=== PATIENT | male | born 1975 | race Caucasian/White ===

== ENCOUNTER 2018-05-29 15:12 | Emergency (ER) | payer OTHER ==
--- NOTE | 2018-05-29 15:43 | ER Document Report ---
ED Medical Screen (RME) - General Chief Complaint: Groin Pain Stated Complaint: GROIN PAIN Time Seen by Provider: 05/29/18 15:29 TRAVEL OUTSIDE OF THE [place] IN LAST 30 DAYS: No - HPI Notes: 05/29/18 15:42 Patient is a 42-year-old male that presents to the emergency department for chief complaint of dysuria and abdominal pain. Patient reports difficulty and pain with urination for the last 3 weeks. He also is having a left lower and left upper quadrant abdominal pain. He denies any nausea or vomiting. He does state he always feels cold. He has a history of Andie fundoplication.. ROS: GENERAL: Denies fever CV: Denies chest pain PHYSICAL EXAMINATION: GENERAL: Well-appearing, well-nourished and in no acute distress. HEAD: Atraumatic, normocephalic. EYES: Pupils equal round extraocular movements intact, conjunctiva are normal. ENT: Nares patent NECK: Normal range of motion LUNGS: No respiratory distress Musculoskeletal: Normal range of motion NEUROLOGICAL: Normal speech, normal gait. PSYCH: Normal mood, normal affect. MDM: Patient seen and examined for rapid initial assessment. Vital signs reviewed. A comprehensive ED assessment and evaluation of the patient, analysis of test results and completion of the medical decision making process will be conducted by additional ED providers. - Related Data Allergies/Adverse Reactions: Cephalosporins Allergy (Verified 05/29/18 15:14) Penicillins Allergy (Verified 05/29/18 15:14) Sulfa (Sulfonamide Antibiotics) Allergy (Verified 05/29/18 15:14) Past Medical History - Social History Frequency of alcohol use: Rare Drug Abuse: None Renal/ Medical History: Denies: Hx Peritoneal Dialysis Musculoskeltal Medical History: Reports Hx Arthritis - rheumatoid and arthritis Past Surgical History: Reports: Hx Orthopedic Surgery - spinal surgery x2, left minuscus Physical Exam - Vital signs Vitals: Temp Pulse Resp BP Pulse Ox 98.0 F 92 14 106/64 100 05/29/18 15:17 05/29/18 15:17 05/29/18 15:17 05/29/18 15:17 05/29/18 15:17 Course - Vital Signs Vital signs: Temp Pulse Resp BP Pulse Ox 98.0 F 92 14 106/64 100 05/29/18 15:17 05/29/18 15:17 05/29/18 15:17 05/29/18 15:17 05/29/18 15:17
[2018-05-29 16:33] LABS: ABSOLUTE BASOPHILS # (AUTO) 0.1 10^3/uL (0.0-0.2); ABSOLUTE EOSINOPHILS # (AUTO) 0.1 10^3/uL (0.0-0.6); ABSOLUTE LYMPHOCYTES (AUTO) 1.8 10^3/uL (0.5-4.7); ABSOLUTE MONOCYTES (AUTO) 0.4 10^3/uL (0.1-1.4); ABSOLUTE NEUT (AUTO) 7.3 10^3/uL (1.7-8.2); BASOPHILS % (AUTO) 0.8 % (0-2); EOSINOPHILS % (AUTO) 0.6 % (0-6); HEMATOCRIT 41.4 % (37.9-51.0); HEMOGLOBIN 14.2 g/dL (13.5-17.0); LYMPHOCYTES % (AUTO) 18.8 % (13-45); MEAN CORPUSCULAR HEMOGLOBIN 26.7 pg (27.0-33.4); MEAN CORPUSCULAR HGB CONC 34.3 g/dL (32.0-36.0); MEAN CORPUSCULAR VOLUME 78 fl (80-97); MONOCYTES % (AUTO) 4.2 % (3-13); PLATELET COUNT 266 10^3/uL (150-450); RED BLOOD COUNT 5.31 10^6/uL (4.35-5.55); RED CELL DISTRIBUTION WIDTH 14.3 % (11.5-14.0); SEGMENTED NEUTROPHILS % (AUTO) 75.6 % (42-78); TOTAL CELLS COUNTED % (AUTO) 100 %; WHITE BLOOD COUNT 9.7 10^3/uL (4.0-10.5)
[2018-05-29 16:36] LABS: APPEARANCE,URINE CLEAR; BILIRUBIN,URINE NEGATIVE (NEGATIVE); COLOR,URINE STRAW; GLUCOSE, URINE NEGATIVE (NEGATIVE); KETONES,URINE NEGATIVE (NEGATIVE); LEUKOCYTE ESTERASE,URINE NEGATIVE (NEGATIVE); NITRITE,URINE NEGATIVE (NEGATIVE); PROTEIN,URINE NEGATIVE (NEGATIVE); URINE SPECIFIC GRAVITY 1.004; UROBILINOGEN,URINE NEGATIVE mg/dL (<2.0)
[2018-05-29 16:47] LABS: ALANINE AMINOTRANSFERASE 16 U/L (21-72); ALBUMIN 4.6 g/dL (3.5-5.0); ALKALINE PHOSPHATASE 83 U/L (38-126); ANION GAP 13 (5-19); ASPARTATE AMINO TRANSFERASE 21 U/L (17-59); BILIRUBIN,DIRECT 0.3 mg/dL (0.0-0.4); BILIRUBIN,TOTAL 0.6 mg/dL (0.2-1.3); BLOOD UREA NITROGEN 6 mg/dL (7-20); CALCIUM 9.8 mg/dL (8.4-10.2); CARBON DIOXIDE 26 mmol/L (22-30); CHLORIDE 103 mmol/L (98-107); GLUCOSE 64 mg/dL (75-110); LIPASE 62.3 U/L (23-300); POTASSIUM 3.9 mmol/L (3.6-5.0); SODIUM 141.7 mmol/L (137-145); TOTAL PROTEIN 7.8 g/dL (6.3-8.2)
[2018-05-29] MEDS ORDERED: HYDROMORPHONE HCL INJ/PF 2 MG/ML AMPULE IM ONE (16:47)
--- NOTE | 2018-05-29 16:59 | ER Document Report ---
ED General - General Chief Complaint: Groin Pain Stated Complaint: GROIN PAIN Time Seen by Provider: 05/29/18 15:29 Mode of Arrival: Ambulatory Information source: Patient, Friend, [facility] Records Notes: 42-year-old male with history of traumatic brain injury, chronic neck and back pain, multiple orthopedic injuries, and pain management in [place] visiting [place] for the holidays presents with complaint of left lower quadrant abdominal pain that has been intermittent for 1 month with worsening of pain over the last 3 days. Patient states that he feels like someone is squeezing his intestines. Patient does have a history of constipation secondary to long- term opiate use. He states he currently has no pain medication. He denies fever, admits to nausea without vomiting. Patient states that he has tried to get into pain management in [place] but was unable to and now is here and in pain. He states "I can get anything I need in [place]". TRAVEL OUTSIDE OF THE [place] IN LAST 30 DAYS: No - HPI Onset: Other Onset/Duration: Intermittent, Worse Quality of pain: Pressure Severity: Moderate Pain Level: 2 Associated symptoms: Nausea, Other - Constipation. denies: Body/muscle aches, Chest pain, Diarrhea, Fever, Vomiting, Shortness of breath Exacerbated by: Movement Relieved by: Denies Similar symptoms previously: Yes Recently seen / treated by doctor: No - Related Data Allergies/Adverse Reactions: Cephalosporins Allergy (Verified 05/29/18 15:14) Penicillins Allergy (Verified 05/29/18 15:14) Sulfa (Sulfonamide Antibiotics) Allergy (Verified 05/29/18 15:14) Past Medical History - General Information source: Patient, Friend - Social History Smoking Status: Current Every Day Smoker Cigarette use (# per day): Yes - Smoking cessation counseling was provided for 4 minutes at the bedside Frequency of alcohol use: Rare Drug Abuse: None Lives with: Spouse/Significant other Family History: Reviewed & Not Pertinent Patient has suicidal ideation: No Patient has homicidal ideation: No Renal/ Medical History: Denies: Hx Peritoneal Dialysis Musculoskeletal Medical History: Reports Hx Arthritis - rheumatoid and arthritis Past Surgical History: Reports: Hx Orthopedic Surgery - spinal surgery x2, left minuscus Review of Systems - Review of Systems Notes: REVIEW OF SYSTEMS: CONSTITUTIONAL : Denies fever, chills, or sweats. Denies recent illness. Denies weight loss, recent hospitalizations. EENT: Denies visual changes, eye pain. Denies sore throat, oral lesions, difficulty swallowing. CARDIOVASCULAR: Denies chest pain. Denies palpitations. Denies lower extremity edema. RESPIRATORY: Denies cough. Denies shortness of breath, wheezing. GASTROINTESTINAL: Denies nausea, vomiting, or diarrhea. Denies blood in vomitus, stools, or per rectum. Denies black, tarry stools. GENITOURINARY: Denies difficulty urinating, painful urination, frequency, blood in urine, testicular pain or penile discharge. MUSCULOSKELETAL: Denies back or neck pain or stiffness. Denies joint pain or swelling. SKIN: Denies rash, lesions or sores. HEMATOLOGIC : Denies easy bruising or bleeding. LYMPHATIC: Denies swollen glands. NEUROLOGICAL: Denies confusion or altered mental status. Denies loss of consciousness. Denies dizziness or lightheadedness. Denies headache. Denies weakness or paralysis. Denies problems difficulty with ambulation, slurred speech. Denies sensory loss, numbness, or tingling. Denies seizures. PSYCHIATRIC: Denies anxiety or stress. Denies depression, suicidal ideation, or Physical Exam - Vital signs Vitals: Temp Pulse Resp BP Pulse Ox 98.0 F 92 14 106/64 100 05/29/18 15:17 05/29/18 15:17 05/29/18 15:17 05/29/18 15:17 05/29/18 15:17 - Notes Notes: PHYSICAL EXAMINATION: GENERAL: Well-appearing, well-nourished and in no acute distress. HEAD: Atraumatic, normocephalic. EYES: Pupils equal round and reactive to light, extraocular movements intact, sclera anicteric, conjunctiva are normal. ENT: Nares patent, oropharynx clear without exudates. Moist mucous membranes. NECK: Normal range of motion, supple without lymphadenopathy LUNGS: Breath sounds clear to auscultation bilaterally and equal. No wheezes rales or rhonchi. HEART: Regular rate and rhythm without murmurs ABDOMEN: Mild diffuse abdominal tenderness. Negative McBurney's, negative Martin's. No guarding, no rebound. No masses appreciated. Musculoskeletal: Normal range of motion, no pitting or edema. No cyanosis. NEUROLOGICAL: Cranial nerves grossly intact. Normal speech, normal gait. Normal sensory, motor exams PSYCH: Normal mood, normal affect. SKIN: Warm, Dry, normal turgor, no rashes or lesions noted. Course - Re-evaluation Re-evalutation: 05/29/18 21:43 Laboratory 05/29/18 05/29/18 05/29/18 15:51 15:51 15:51 WBC 9.7 RBC 5.31 Hgb 14.2 Hct 41.4 MCV 78 L MCH 26.7 L MCHC 34.3 RDW 14.3 H Plt Count 266 Seg Neutrophils % 75.6 Lymphocytes % 18.8 Monocytes % 4.2 Eosinophils % 0.6 Basophils % 0.8 Absolute Neutrophils 7.3 Absolute Lymphocytes 1.8 Absolute Monocytes 0.4 Absolute Eosinophils 0.1 Absolute Basophils 0.1 Sodium 141.7 Potassium 3.9 Chloride 103 Carbon Dioxide 26 Anion Gap 13 BUN 6 L Creatinine 0.78 Est GFR ( Amer) > 60 Est GFR (Non-Af Amer) > 60 Glucose 64 L Calcium 9.8 Total Bilirubin 0.6 Direct Bilirubin 0.3 Neonat Total Bilirubin Not Reportable Neonat Direct Bilirubin Not Reportable Neonat Indirect Bili Not Reportable AST 21 ALT 16 L Alkaline Phosphatase 83 Total Protein 7.8 Albumin 4.6 Lipase 62.3 Urine Color STRAW Urine Appearance CLEAR Urine pH 5.0 Ur Specific Thornton 1.004 Urine Protein NEGATIVE Urine Glucose (UA) NEGATIVE Urine Ketones NEGATIVE Urine Blood NEGATIVE Urine Nitrite NEGATIVE Urine Bilirubin NEGATIVE Urine Urobilinogen NEGATIVE Ur Leukocyte Esterase NEGATIVE Urine WBC (Auto) 0 Urine Bacteria (Auto) TRACE Urine Mucus (Auto) RARE Urine Ascorbic Acid NEGATIVE Temp Pulse Resp BP Pulse Ox 98.1 F 77 16 108/68 100 05/29/18 17:55 05/29/18 17:55 05/29/18 17:55 05/29/18 17:55 05/29/18 15:17 Acute Abdomen Series 05/29/18 16:46 IMPRESSION: NO RADIOGRAPHIC EVIDENCE FOR ACUTE ABDOMINAL DISEASE. CONSTIPATION. 42-year-old male with a history of chronic pain due to traumatic injuries years ago presents with complaint of abdominal pain. Upon arrival vitals were reviewed and within normal limits. Patient does not appear toxic or dehydrated. Exam is significant for diffuse abdominal tenderness without focal tenderness or signs of peritonitis. Friend who is at the bedside last evening for the patient mostly requesting pain medications stating it is hard to get pain meds and other states besides [place]. She also stated that she try to get into pain management in [place] but were unable to do so. Despite my long discussion with them regarding the findings of constipation likely due to long-term opiate use they consistently ask for home going narcotic medications. Patient states that he was on OxyContin, morphine and because he is out of state has no medication. I declined patient's request for morphine and Oxycontin. Suspicious for drug-seeking behavior. Even registration came up to me to make me aware that the patient was refusing to give up any personal information regarding where he lives. Patient was evaluated and treated as appropriate for the patient's presenting symptoms and complaint, with consideration of any critical or life threatening conditions that may be associated with their obtained history and exam as noted above. All results were discussed with patient. Patient provided the opportunity to ask questions, and express concerns. Patient was educated on treatments based on their presumed diagnosis as noted above. At this time we will discharge the patient with return precautions and follow-up recommendations. Verbal discharge instructions given a the bedside. Medication warnings reviewed. Patient is in agreement with this plan and has verbalized understanding of return precautions. After careful consideration I feel that that patient can be safely discharged from the emergency department, they were advised to followup with a primary care physician in 2-3 days. Dictation on this chart was performed using voice recognition software and may result in unintended grammatical, spelling, syntax or errors. - Vital Signs Vital signs: Temp Pulse Resp BP Pulse Ox 98.1 F 77 16 108/68 100 05/29/18 17:55 05/29/18 17:55 05/29/18 17:55 05/29/18 17:55 05/29/18 15:17 - Laboratory Result Diagrams: 05/29/18 15:51 05/29/18 15:51 Laboratory results interpreted by me: 05/29/18 05/29/18 15:51 15:51 MCV 78 L MCH 26.7 L RDW 14.3 H BUN 6 L Glucose 64 L ALT 16 L - Diagnostic Test Radiology reviewed: Image reviewed, Reports reviewed Discharge - Discharge Clinical Impression: Chronic neck and back pain, Chronic abdominal pain Constipation Qualifiers: Constipation type: drug induced constipation Qualified Code(s): K59.03 - Drug induced constipation Condition: Good Disposition: HOME, SELF-CARE Instructions: Abdominal Pain ([facility]), Chronic Pain Control ([facility]), Constipation ( [facility]) Prescriptions: Tramadol HCl [Ultram 50 mg Tablet] 50 mg PO Q4HP PRN #12 tab PRN Reason: Dicyclomine HCl [Bentyl 20 mg Tablet] 20 mg PO Q6H #12 tablet Docusate Sodium [Colace 100 mg Capsule] 100 mg PO DAILY #30 capsule
--- NOTE | 2018-05-29 17:13 | RADIOLOGY REPORT (SQ) ---
EXAM DESCRIPTION: ACUTE ABDOMEN SERIES COMPLETED DATE/TIME: 05/29/2018 5:03 pm REASON FOR STUDY: llq pain suspect constipation COMPARISON: None. NUMBER OF VIEWS: Three views. TECHNIQUE: Frontal chest, supine abdomen and upright/decubitus abdomen radiographic images acquired. LIMITATIONS: None. FINDINGS: CHEST: Lungs clear of infiltrates. FREE AIR: None. No abnormal gas collections. BOWEL GAS PATTERN: Nonobstructive pattern. No dilated loops or air fluid levels. CONSTIPATION: moderate. CALCIFICATIONS: No suspicious calcifications. HARDWARE: 2 metallic devices are present at the L1-2 level. SOFT TISSUES: No gross mass or suggestion of organomegaly. BONES: No acute fracture. No worrisome bone lesions. OTHER: No other significant finding. IMPRESSION: NO RADIOGRAPHIC EVIDENCE FOR ACUTE ABDOMINAL DISEASE. CONSTIPATION. TECHNICAL DOCUMENTATION: JOB ID: [id number] [employer]- All Rights Reserved Reading location - IP/workstation name: [employer] With [employer]
[2018-05-29] MEDS ORDERED: MAGNESIUM CITRATE 296 ML BOTTLE PO ONE (17:28)
[2018-05-29 17:57] VITALS: BP 108/68
== END 2018-05-29 18:00 | disposition home or self-care (01) ==
LOC: ER 15:12
DX: K59.03 Drug induced constipation (principal); T50.905A Adverse effect of unspecified drugs, medicaments and biological substances, initial encounter; R10.9 Unspecified abdominal pain; M54.2 Cervicalgia; M54.9 Dorsalgia, unspecified; G89.29 Other chronic pain; R11.0 Nausea; R10.817 Generalized abdominal tenderness; F17.200 Nicotine dependence, unspecified, uncomplicated; Z71.6 Tobacco abuse counseling; Z88.1 Allergy status to other antibiotic agents; Z88.0 Allergy status to penicillin; Z88.2 Allergy status to sulfonamides
CPT/HCPCS: 99284; 96372; 36415; 83690; 85025; 80053; 81001; 74022; J3490; J1170